=== PATIENT | male | born 1995 | race Hispanic/Latino ===

== ENCOUNTER 2021-11-26 06:23 | Day surgery (SDC) | payer OTHER ==
[2021-11-20 13:12] LABS: BASOPHILS % (AUTO) 0.7 % (0.0-5.0); EOSINOPHILS % (AUTO) 2.7 % (0.0-8.0); HEMATOCRIT 46.4 % (42-54); LYMPHOCYTES % (AUTO) 26.2 % (21.0-51.0); MEAN CORPUSCULAR HEMOGLOBIN 31.2 pg (27.0-33.0); MEAN CORPUSCULAR HGB CONC 33.8 g/dL (32.0-36.0); MEAN CORPUSCULAR VOLUME 92.2 fL (79-99); MONOCYTES % (AUTO) 6.6 % (3.0-13.0); NEUTROPHILS % (AUTO) 63.7 % (40.0-77.0); PLATELET COUNT (AUTO) 248 K/uL (130-400); RED BLOOD CELL COUNT(AUTO) 5.03 MIL/uL (4.50-6.20); RED CELL DISTRIBUTION WIDTH 12.6 % (11.0-15.5); WHITE BLOOD COUNT (AUTO) 6.7 K/uL (4.8-10.8)
[2021-11-20 13:28] LABS: INR 0.95 (0.85-1.15); PROTHROMBIN TIME 10.4 SEC (9.6-11.6)
[2021-11-20 13:29] LABS: PARTIAL THROMBOPLASTIN TIME 27.4 SEC (26.3-35.5)
[2021-11-20 13:30] LABS: CREATININE 0.9 mg/dL (0.5-1.5); POTASSIUM 4.2 mmol/L (3.5-5.1)
[2021-11-24 10:47] VITALS: BP 126/69
[2021-11-26] VITALS (16 sets, daily range): BP systolic 117–152; BP diastolic 66–89
[~2021-11-26] VITALS: Ht 172.7 cm; Wt 81.7 kg
[2021-11-26] MEDS ORDERED: BUPIVACAINE/PF 0.5% 10ML VIAL ONE (06:54)
[2021-11-26] MEDS ORDERED: LIDOCAINE HCL 1% 10 ML VIAL ONE (06:54)
[2021-11-26] MEDS ORDERED: LACTATED RINGERS 1000ML 1,000 ML IV ONE (06:55)
[2021-11-26] MEDS ORDERED: ONDANSETRON 4MG INJ ONE (07:32)
[2021-11-26] MEDS ORDERED: PROPOFOL 10 MG/ML 20ML VIAL IV ONE (07:32)
[2021-11-26] MEDS ORDERED: MIDAZOLAM HCL 1 MG/ML 2ML VIAL ONE (07:32)
[2021-11-26] MEDS ORDERED: ROCURONIUM 10MG/1ML SYR 10 MG/ML ML ONE (07:33)
[2021-11-26] MEDS ORDERED: FENTANYL CITRATE PF 50 MCG/1 ML 5ML AMP IV ONE (07:35)
[2021-11-26] MEDS ORDERED: CEFAZOLIN SODIUM 1 GM VIAL IVP ONE (08:00)
[2021-11-26] MEDS ORDERED: CEFAZOLIN SODIUM 2 GM VIAL IV ONE (08:52)
[2021-11-26] MEDS ORDERED: BACITRACIN 28.4 GM OINT TP ONE (09:14)
[2021-11-26] MEDS ORDERED: EPHEDRINE SULFATE 50 MG/ML AMPULE ONE (09:49)
[2021-11-26] MEDS ORDERED: NEOSTIGMINE 5MG/5ML SYR IV ONE (10:05)
[2021-11-26] MEDS ORDERED: GLYCOPYRROLATE 1 MG/5 ML SYRINGE ONE (10:05)
[2021-11-26] MEDS ORDERED: FENTANYL CITRATE PF 50 MCG/1 ML 2ML VIAL ONE (10:08)
== END 2021-11-26 12:15 | disposition home or self-care (01) ==
LOC: DAH 06:23
PROVIDERS: ATTEND Urology
DX: Z30.2 Encounter for sterilization (principal); N43.40 Spermatocele of epididymis, unspecified; Z79.899 Other long term (current) drug therapy; Z98.890 Other specified postprocedural states; Z79.01 Long term (current) use of anticoagulants
CPT/HCPCS: 80048; 85025; 85610; 85730; 87426; 36415; 54840; 55250; A6260; J0690 ×2; J7120; J3010 ×2; J3490 ×3; J2710; J2250; J2704; J2405; A4930; A4215; A4223; A4222; A4221; A4663; A4600